=== PATIENT | female | born 1990 | race Caucasian/White ===

== ENCOUNTER → 2018-07-31 | Outpatient (CLI) | payer OTHER | LOC: OD 12:20 | PROVIDERS: ATTEND Obstetrics & Gynecology | DX: O02.0 Blighted ovum and nonhydatidiform mole (principal) | CPT/HCPCS: 36415; 86900; 86901 ==

== ENCOUNTER 2018-09-27 06:58 | Emergency (ER) | payer OTHER ==
[2018-09-27 08:22] LABS: ABSOLUTE LYMPHOCYTES (AUTO) 1.5 10^3/uL (0.5-4.7); ABSOLUTE MONOCYTES (AUTO) 0.5 10^3/uL (0.1-1.4); ABSOLUTE NEUT (AUTO) 5.1 10^3/uL (1.7-8.2); BASOPHILS % (AUTO) 0.2 % (0-2); EOSINOPHILS % (AUTO) 0.4 % (0-6); HEMATOCRIT 37.1 % (36.0-47.0); HEMOGLOBIN 13.4 g/dL (12.0-15.5); LYMPHOCYTES % (AUTO) 20.6 % (13-45); MEAN CORPUSCULAR HEMOGLOBIN 33.9 pg (27.0-33.4); MEAN CORPUSCULAR HGB CONC 36.1 g/dL (32.0-36.0); MEAN CORPUSCULAR VOLUME 94 fl (80-97); MONOCYTES % (AUTO) 7.5 % (3-13); PLATELET COUNT 210 10^3/uL (150-450); RED BLOOD COUNT 3.96 10^6/uL (3.72-5.28); RED CELL DISTRIBUTION WIDTH 13.5 % (11.5-14.0); SEGMENTED NEUTROPHILS % (AUTO) 71.3 % (42-78); TOTAL CELLS COUNTED % (AUTO) 100 %; WHITE BLOOD COUNT 7.2 10^3/uL (4.0-10.5)
[2018-09-27 08:26] LABS: APPEARANCE,URINE CLEAR; BILIRUBIN,URINE NEGATIVE (NEGATIVE); COLOR,URINE YELLOW; GLUCOSE, URINE NEGATIVE (NEGATIVE); KETONES,URINE NEGATIVE (NEGATIVE); LEUKOCYTE ESTERASE,URINE NEGATIVE (NEGATIVE); NITRITE,URINE NEGATIVE (NEGATIVE); PROTEIN,URINE NEGATIVE (NEGATIVE); URINE SPECIFIC GRAVITY 1.021; UROBILINOGEN,URINE NEGATIVE mg/dL (<2.0)
--- NOTE | 2018-09-27 09:45 | RADIOLOGY REPORT (SQ) ---
EXAM DESCRIPTION: U/S OB LIMITED COMPLETED DATE/TIME: 09/27/2018 9:36 am REASON FOR STUDY: vaginal bleeding, pelvic pain COMPARISON: None. TECHNIQUE: Limited transabdominal grayscale ultrasound for evaluation of specific requested obstetri kinjal parameters. LIMITATIONS: None. FINDINGS: CERVICAL LENGTH: 3.9 cm. Closed. TOPHER: Largest pocket 4.8 cm. FHR: 147 beats per minute. PRESENTATION: Transverse. PLACENTA: Fundal. ANATOMY: Not assessed OTHER: No other significant findings. IMPRESSION: LIMITED OBSTETRICAL ULTRASOUND WITH MEASURED PARAMETERS DELINEATED ABOVE. Trimester of : Second trimester - 13 weeks 1 day to 27 weeks 6 days. TECHNICAL DOCUMENTATION: JOB ID: [id number] [employer] All Rights Reserved Reading location - IP/workstation name: [email or web address]
--- NOTE | 2018-09-27 10:17 | ER Document Report ---
ED GI/ - General Chief Complaint: Vaginal Bleeding Stated Complaint: VAGINAL BLEEDING Time Seen by Provider: 09/27/18 07:23 Mode of Arrival: Ambulatory Information source: Patient Notes: Patient presents about 15 weeks complaining of vaginal bleeding and lower pelvic cramping. Patient states that she does have a bicornate uterus. Patient is [facility] and has had previous ultrasounds performed. Patient denies any concerns about any sexually transmitted infection. Patient denies any dysuria symptoms. TRAVEL OUTSIDE OF THE [place] IN LAST 30 DAYS: No - HPI Patient complains to provider of: Pelvic pain, Vaginal bleeding. No: Vaginal discharge Onset: This morning Timing/Duration: Persistent Quality of pain: Cramping Pain Level: 1 Context: Location: Pelvis Vaginal bleeding (Compared to normal period): Spotting Menstrual period history: Associated symptoms: denies: Dysuria, Fever, Nausea, Urinary hesitancy, Urinary frequency, Urinary retention, Urinary urgency, Vomiting Exacerbated by: Denies Relieved by: Denies Similar symptoms previously: No Recently seen / treated by doctor: No - Related Data Allergies/Adverse Reactions: latex Allergy (Verified 09/27/18 07:05) acetaminophen [From Tylenol] Adverse Reaction (Verified 09/27/18 07:50) Past Medical History - General Information source: Patient Last Menstrual Period: 15 weeks - Social History Smoking Status: Never Smoker Frequency of alcohol use: None Drug Abuse: None Lives with: Family Family History: Reviewed & Not Pertinent Patient has suicidal ideation: No Patient has homicidal ideation: No - Past Medical History Cardiac Medical History: Reports: Hx Hypertension Renal/ Medical History: Denies: Hx Peritoneal Dialysis Past Surgical History: Reports: Hx Tonsillectomy, Other - Melanoma removed Review of Systems - Review of Systems Constitutional: No symptoms reported. denies: Fever EENT: No symptoms reported Cardiovascular: No symptoms reported. denies: Chest pain Respiratory: No symptoms reported. denies: Cough, Short of breath Gastrointestinal: Abdominal pain Genitourinary: No symptoms reported. denies: Dysuria, Flank pain, Hematuria Female Genitourinary: , Vaginal bleeding. denies: Vaginal discharge Musculoskeletal: No symptoms reported. denies: Back pain Skin: No symptoms reported Hematologic/Lymphatic: No symptoms reported Neurological/Psychological: No symptoms reported Physical Exam - Vital signs Vitals: Temp Pulse Resp BP Pulse Ox 98.2 F 94 18 123/75 99 09/27/18 07:04 09/27/18 07:04 09/27/18 07:04 09/27/18 07:04 09/27/18 07:04 - General General appearance: Appears well, Alert In distress: None - HEENT Head: Normocephalic, Atraumatic Eyes: Normal Conjunctiva: Normal Nasal: Normal Mouth/Lips: Normal Mucous membranes: Normal Neck: Normal, Supple. No: Lymphadenopathy - Respiratory Respiratory status: No respiratory distress Chest status: Nontender Breath sounds: Normal. No: Rales, Rhonchi, Stridor, Wheezing Chest palpation: Normal - Cardiovascular Rhythm: Regular Heart sounds: S1 appreciated, S2 appreciated Murmur: No - Abdominal Inspection: Normal Distension: No distension Bowel sounds: Normal Tenderness: Tender - Lower pelvic Organomegaly: No organomegaly - Back Back: Normal, Nontender. No: CVA tenderness - Extremities General upper extremity: Normal inspection, Normal ROM General lower extremity: Normal inspection, Normal ROM - Neurological Neuro grossly intact: Yes Cognition: Normal [place] Coma Scale Eye Opening: Spontaneous Luisa Coma Scale Verbal: Oriented Luisa Coma Scale Motor: Obeys Commands Luisa Coma Scale Total: 15 - Psychological Associated symptoms: Normal affect, Normal mood - Skin Skin Temperature: Warm Skin Moisture: Dry Skin Color: Normal Course - Re-evaluation Re-evalutation: 09/27/18 10:14 Offered patient pelvic examination, patient deferred. Offered catheterized urine specimen, patient declines. Patient denies any concerns about sexually transmitted infection as she is closely followed by her [facility] provider. Patient concerned about because of vaginal bleeding. Did speak with radiologist who reviewed down and did not see any explanation for her vaginal bleeding. Radiologist states that there is no abruption and no subchorionic bleed noted. Consulted with Dr. Higgins regarding patient presentation, no additional testing recommended. Advises pelvic rest and follow-up with [facility]. 09/27/18 10:16 - Vital Signs Vital signs: Temp Pulse Resp BP Pulse Ox 97.8 F 78 16 121/76 99 09/27/18 10:29 09/27/18 10:29 09/27/18 10:29 09/27/18 10:29 09/27/18 07:04 - Laboratory Result Diagrams: 09/27/18 08:09 Laboratory results interpreted by me: 09/27/18 09/27/18 09/27/18 08:09 08:09 08:09 MCH 33.9 H MCHC 36.1 H Beta HCG, Quant 94092.00 H Urine Blood MODERATE H 09/27/18 18:25 Labs- Entire Visit 09/27/18 09/27/18 09/27/18 08:09 08:09 08:09 WBC 7.2 RBC 3.96 Hgb 13.4 Hct 37.1 MCV 94 MCH 33.9 H MCHC 36.1 H RDW 13.5 Plt Count 210 Seg Neutrophils % 71.3 Lymphocytes % 20.6 Monocytes % 7.5 Eosinophils % 0.4 Basophils % 0.2 Absolute Neutrophils 5.1 Absolute Lymphocytes 1.5 Absolute Monocytes 0.5 Absolute Eosinophils 0.0 Absolute Basophils 0.0 Beta HCG, Quant Total Beta HCG Urine Color YELLOW Urine Appearance CLEAR Urine pH 6.0 Ur Specific [place] 1.021 Urine Protein NEGATIVE Urine Glucose (UA) NEGATIVE Urine Ketones NEGATIVE Urine Blood MODERATE H Urine Nitrite NEGATIVE Urine Bilirubin NEGATIVE Urine Urobilinogen NEGATIVE Ur Leukocyte Esterase NEGATIVE Urine WBC (Auto) 0 Urine RBC (Auto) 0 U Hyaline Cast (Auto) 1 Squamous Epi Cells Auto 1 Urine Mucus (Auto) MOD Urine Ascorbic Acid NEGATIVE Blood Type A POSITIVE Rhogam Indicated RHOGAM NOT INDICATED 09/27/18 08:09 WBC RBC Hgb Hct MCV MCH MCHC RDW Plt Count Seg Neutrophils % Lymphocytes % Monocytes % Eosinophils % Basophils % Absolute Neutrophils Absolute Lymphocytes Absolute Monocytes Absolute Eosinophils Absolute Basophils Beta HCG, Quant 23842.00 H Total Beta HCG POSITIVE Urine Color Urine Appearance Urine pH Ur Specific [place] Urine Protein Urine Glucose (UA) Urine Ketones Urine Blood Urine Nitrite Urine Bilirubin Urine Urobilinogen Ur Leukocyte Esterase Urine WBC (Auto) Urine RBC (Auto) U Hyaline Cast (Auto) Squamous Epi Cells Auto Urine Mucus (Auto) Urine Ascorbic Acid Blood Type Rhogam Indicated - Diagnostic Test Radiology reviewed: Reports reviewed Discharge - Discharge Clinical Impression: Vaginal bleeding affecting early Condition: Stable Disposition: HOME, SELF-CARE Instructions: Bleeding During Early ([facility]) Additional Instructions: Return immediately for any new or worsening symptoms Followup with your primary care provider, call tomorrow to make a followup appointment Urine culture is pending, we will call if you need any different treatment Follow-up with your [facility] provider, call tomorrow for an appointment Forms: Return to Work Referrals: [facility] [Provider Group] - Follow up tomorrow
[2018-09-27 10:30] VITALS: BP 121/76
== END 2018-09-27 10:29 | disposition home or self-care (01) ==
LOC: ER 06:58
DX: O20.9 Hemorrhage in early pregnancy, unspecified (principal); Z3A.15 15 weeks gestation of pregnancy; Z91.040 Latex allergy status
CPT/HCPCS: 36415; 76815; 81001; 84702; 85025; 86900; 86901; 87086; 99284

== ENCOUNTER 2019-03-10 10:24 | Outpatient (CLI) | payer OTHER ==
--- NOTE | 2019-03-10 11:13 | Non Stress Test Report ---
Non Stress Test Datetime Report Generated by CPN: 03/10/2019 11:13 DEMOGRAPHIC Test Number: 1 EGA NST: 38.1 INDICATION Indication for Study: Ordered by Provider MONITORING Monitor Explained: Monitor Explained; Test Explained; Patient Verbalized Understanding Time on Monitor: 03/10/2019 10:39 Time off Monitor: 03/10/2019 11:03 NST Duration: 24 NST INTERVENTIONS NST Interventions: None Physician Notified NST: Dr. Haile BABY A: [id number] BABY A Movement : Present Contraction Frequency : none FHR Baseline : 130 Accelerations : 15X15 Decelerations : None Variability : Moderate 6-25bpm NST Review: Meets Criteria for Reactive NST NST Review and Verified By : Payam Chaves RN NSDavid Results: Reactive NST REPORT Report Trigger: Send Report
== END 2019-03-10 11:07 | disposition home or self-care (01) ==
LOC: LC 10:24
PROVIDERS: ATTEND Obstetrics & Gynecology
PROC: 4A1HXCZ Monitoring of Products of Conception, Cardiac Rate, External Approach (ICD-10-PCS; principal; 2019-03-10)
DX: Z34.93 Encounter for supervision of normal pregnancy, unspecified, third trimester (principal)
CPT/HCPCS: 59025

== ENCOUNTER 2019-03-11 13:40 | Outpatient (CLI) | payer OTHER ==
[2019-03-11 14:54] LABS: APPEARANCE,URINE CLEAR; BILIRUBIN,URINE NEGATIVE (NEGATIVE); COLOR,URINE STRAW; GLUCOSE, URINE 50 mg/dL (NEGATIVE); KETONES,URINE NEGATIVE (NEGATIVE); LEUKOCYTE ESTERASE,URINE NEGATIVE (NEGATIVE); NITRITE,URINE NEGATIVE (NEGATIVE); PROTEIN,URINE NEGATIVE (NEGATIVE); URINE SPECIFIC GRAVITY 1.004; UROBILINOGEN,URINE NEGATIVE mg/dL (<2.0)
[2019-03-11 15:11] LABS: URINE AMPHETAMINES SCREEN NEGATIVE; URINE BARBITURATES SCREEN NEGATIVE; URINE BENZODIAZEPINES SCREEN NEGATIVE; URINE COCAINE SCREEN NEGATIVE; URINE MARIJUANA (THC) SCREEN NEGATIVE; URINE METHADONE SCREEN NEGATIVE; URINE PHENCYCLIDINE SCREEN NEGATIVE
--- NOTE | 2019-03-11 15:26 | Non Stress Test Report ---
Non Stress Test Datetime Report Generated by CPN: 03/11/2019 15:26 DEMOGRAPHIC Test Number: 3 EGA NST: 38.2 INDICATION Indication for Study: Decreased Movement; Ordered by Provider VITAL SIGNS Temperature - NST: 98.1 MONITORING Monitor Explained: Monitor Explained; Test Explained; Patient Verbalized Understanding Time on Monitor: 03/11/2019 14:40 Time off Monitor: 03/11/2019 15:07 NST Duration: 27 NST INTERVENTIONS NST Interventions: PO Hydration Physician Notified NST: p Noe CNM BABY A: [id number] BABY A Movement : Present Contraction Frequency : occasional FHR Baseline : 125 Accelerations : 15X15 Decelerations : None Variability : Moderate 6-25bpm NST Review: Meets Criteria for Reactive NST NST Review and Verified By : EMEKA Shi NST Results: Reactive NST REPORT Report Trigger: Send Report
== END 2019-03-11 15:52 | disposition home or self-care (01) ==
LOC: LC 13:40
PROVIDERS: ATTEND Obstetrics & Gynecology
PROC: 4A1HXCZ Monitoring of Products of Conception, Cardiac Rate, External Approach (ICD-10-PCS; principal; 2019-03-11)
DX: O36.8130 Decreased fetal movements, third trimester, not applicable or unspecified (principal); O47.1 False labor at or after 37 completed weeks of gestation; Z3A.38 38 weeks gestation of pregnancy
CPT/HCPCS: 80307; 81005; 84112

== ENCOUNTER 2019-03-17 18:59 | Inpatient (IN) | payer OTHER ==
[2019-03-17] MEDS ORDERED: PENICILLIN G-K 5 MILLION UNIT VIAL ONE (20:00)
[2019-03-17] MEDS ORDERED: PENICILLIN G POTASSIUM 5,000,000 UNIT in DEXTROSE 5%-WATER 100 ML IV ONE (20:05)
[2019-03-17] MEDS ORDERED: RINGERS SOLUTION,LACTATED 1,000 ML IV PRN (20:05)
[2019-03-17] MEDS ORDERED: OXYTOCIN/NORMAL SALINE 20 UNIT/1,000 ML RTUINJ ONE (20:06)
[2019-03-17] MEDS ORDERED: LIDOCAINE 1% INJ-PF (10 MG/ML) 30 ML SDV ONE (20:06)
[2019-03-17] MEDS ORDERED: MISOPROSTOL 0.2 MG TABLET ONE (20:06)
--- NOTE | 2019-03-17 20:55 | Admission Physical ---
Datetime Report Generated by CPN: 03/17/2019 20:55 CURRENT ADMISSION Chief Complaint: Uterine Contractions; Suspected Ruptured Membranes Indication for Induction: Not Applicable Admit Impression : Term, Intrauterine ; No Active Labor; Ruptured Membranes Admit Plan: Admit to Unit; Initiate Labor Protocol ALLERGIES Medication Allergies: acetaminophen (09/27/2018); latex (09/27/2018) Latex: Latex Allergies OBSTETRICAL HISTORY EDC: 03/23/2019 00:00 : 2 (Annotations: Data stored by [facility] on behalf of user) Para: 0 Gestational Diabetes: No Rh Sensitization: No Incompetent Cervix: No ESTRELLITA: No Infertility: No ART Treatment: No Uterine Anomaly: Yes IUGR: No Hx Previous C/S: No Macrosomia: Yes Hx Loss/Stillborn: No PIH: No Hx : No Placenta Previa/Abruption: No Depression/PP Depression: No PTL/PROM: No Post Hemorrhage: No SEE RECORDS Alcohol: No Marijuana : No Cocaine: No Other Illicit Drugs: No Cigarettes: Never Smoker. 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, tosillectomy septoplast INFECTIOUS HISTORY Gonorrhea: No Genital Herpes: No Chlamydia: No Tuberculosis: Yes Syphilis: No Hepatitis: No HIV/AIDS Exposure: No Rash or Viral Illness: No HPV: No Infectious History Comments: 2000 PHYSICAL EXAM General: Normal HEENT: Normal Neurologic: Normal Thyroid: Normal Heart: Normal Lungs: Normal Breast: Normal Back: Normal Abdomen: Normal Genitourinary Exam: Normal Extremities: Normal DTRs: Normal Pelvic Type: Adequate Vital Signs: Reviewed; Within Normal Limits VAGINAL EXAM Dilatation: 4 Effacement: 90 Station: -1 Contraction Comments: q 2 MEMBRANES Pooling: Positive Membranes: Ruptured Amniotic Fluid Color: Clear FETUS A EGA: 39.1 Monitoring: External US FHR- Baseline: 110s Variability: Moderate 6-25bpm Accelerations: 15X15 Decelerations: None FHR Category: Category I Admit Comment: Rupture of membranes at 1820--clear fluid. Amna regularly--bicornuate uterus. GBS Positive. PLANS FOR LABOR AND DELIVERY Labor and Delivery: None Pain Management: Epidural Feeding Preference: Breast Circumcision: No INFORMED CONSENT Signature: with User ID: [email or web address]
[2019-03-17] MEDS ORDERED: FENTANYL/BUPIVACAINE/NS/PF 0 MCG/0 ML RTUINJ EPI ONE (21:04)
[2019-03-17] MEDS ORDERED: BUPIVACAINE HCL 0.25 % INJ/PF (2.5 MG/1 ML) 30 ML VIAL ONE (21:04)
[2019-03-17] MEDS ORDERED: EPHEDRINE SULFATE INJ 50 MG/1 ML AMPULE ONE (21:04)
[2019-03-17 21:13] LABS: ABSOLUTE LYMPHOCYTES (AUTO) 1.8 10^3/uL (0.5-4.7); ABSOLUTE NEUT (AUTO) 12.5 10^3/uL (1.7-8.2); BASOPHILS % (AUTO) 0.1 % (0-2); EOSINOPHILS % (AUTO) 0.2 % (0-6); HEMATOCRIT 39.7 % (36.0-47.0); HEMOGLOBIN 13.8 g/dL (12.0-15.5); LYMPHOCYTES % (AUTO) 11.9 % (13-45); MEAN CORPUSCULAR HGB CONC 34.9 g/dL (32.0-36.0); MEAN CORPUSCULAR VOLUME 95 fl (80-97); MONOCYTES % (AUTO) 6.3 % (3-13); PLATELET COUNT 183 10^3/uL (150-450); RED BLOOD COUNT 4.19 10^6/uL (3.72-5.28); RED CELL DISTRIBUTION WIDTH 13.4 % (11.5-14.0); SEGMENTED NEUTROPHILS % (AUTO) 81.5 % (42-78); TOTAL CELLS COUNTED % (AUTO) 100 %; WHITE BLOOD COUNT 15.3 10^3/uL (4.0-10.5)
[2019-03-17 22:03] LABS: APPEARANCE,URINE CLEAR; BILIRUBIN,URINE NEGATIVE (NEGATIVE); COLOR,URINE YELLOW; GLUCOSE, URINE NEGATIVE (NEGATIVE); KETONES,URINE TRACE mg/dL (NEGATIVE); LEUKOCYTE ESTERASE,URINE NEGATIVE (NEGATIVE); NITRITE,URINE NEGATIVE (NEGATIVE); PROTEIN,URINE NEGATIVE (NEGATIVE); URINE SPECIFIC GRAVITY 1.006; UROBILINOGEN,URINE NEGATIVE mg/dL (<2.0)
[2019-03-17 22:25] LABS: URINE AMPHETAMINES SCREEN NEGATIVE; URINE BARBITURATES SCREEN NEGATIVE; URINE BENZODIAZEPINES SCREEN NEGATIVE; URINE COCAINE SCREEN NEGATIVE; URINE MARIJUANA (THC) SCREEN NEGATIVE; URINE METHADONE SCREEN NEGATIVE; URINE PHENCYCLIDINE SCREEN NEGATIVE
[2019-03-17] MEDS ORDERED: ZOLPIDEM TARTRATE 5 MG TABLET PO PRN (23:05)
[2019-03-17] MEDS ORDERED: DIBUCAINE 1% OINTMENT 56 GM TP PRN (23:05)
[2019-03-17] MEDS ORDERED: ACETAMINOPHEN WITH CODEINE #3 TABLET PO PRN ×2 (23:05)
[2019-03-17] MEDS ORDERED: OXYTOCIN/NORMAL SALINE 20 UNIT/1,000 ML RTUINJ IV PRN (23:05)
[2019-03-17] MEDS ORDERED: HYDROCODONE/ACETAMINOPHEN 5-325 MG TABLET PO PRN (23:05)
[2019-03-17] MEDS ORDERED: DIPH/PERTUSS(ACELL)/TETANUS VAC/PF 0.5 ML SYR (>=10YO) IM PRN (23:05)
[2019-03-17] MEDS ORDERED: IBUPROFEN 800 MG TABLET ONE (23:23)
[2019-03-18] MEDS: PENICILLIN G POTASSIUM 2,500,000 UNIT in DEXTROSE 5%-WATER 50 ML IV SCH ×2 (00:50→06:10)
[2019-03-18] MEDS: BENZOCAINE/MENTHOL AEROSOL SPRAY 56 ML TOP PRN (01:16)
--- NOTE | 2019-03-18 04:18 | Delivery Summary ---
Del Sum A-C Datetime Report Generated by CPN: 03/18/2019 04:18 DELIVERY PERSONNEL DELIVERY PERSONNEL: [id number] Delivery Doctor:: Nava Araiza MD Labor and Delivery Nurse:: Yuliet Gray RNchronic specialist Nurse:: Erendira Banerjee RN Turntable Engineer/SOCIAL SECURITY ASSESSOR: Gloria Ross, ST MATERNAL INFORMATION Delivery Anesthesia: None Medications After Delivery: Pitocin Bolus-Please Comment; Pitocin Drip 20 Units/1000ml NSS Maternal Complications: Other Complication Details: bicornuate uterus Provider Comments: of a viable male w/ an OA presentation at 2227; APGARS 9, 9; 2nd degree periurethral and vaginal lac LABOR SUMMARY EDC: 03/23/2019 00:00 No. Babies in Womb: 1 Attempted: No Labor Anesthesia: None LABOR INFORMATION Reason for Induction: Not Applicable Onset of Labor: 03/17/2019 18:20 Complete Dilatation: 03/17/2019 21:24 Oxytocin: N/A Group B Beta Strep: positive Antibiotics # of Doses: 1 Antibiotics Time of Last Dose: 2018 Name of Antibiotic Given: PCN Steroids Given: None Reason Steroids Not Administered: Not Applicable MEMBRANES Membranes Rupture Method: Spontaneous Rupture of Membranes: 03/17/2019 18:20 Length of Rupture (hr): 4.12 Amniotic Fluid Color: Clear Amniotic Fluid Amount: Small Amniotic Fluid Odor: Normal STAGES OF LABOR Stage 1 hr: 3 Stage 1 min: 4 Stage 2 hr: 1 Stage 2 min: 3 Stage 3 hr: 0 Stage 3 min: 5 Total Time in Labor hr: 4 Total Time in Labor min: 12 VAGINAL DELIVERY Episiotomy: None Laceration #1: Periurethral Laceration Extension #1: Second Degree Laceration #2: Vaginal Laceration Extension #2: Second Degree Laceration Repair: Yes Laceration Repair Note: Periurethral lac repaired with 4-0 Chromic; vaginal lac repaired with 2-0 Vicryl Sponge Count Correct: Yes Sharps Count Correct: Yes CSECTION DELIVERY Primary Indication: N/A Secondary Indication: N/A CSection Incision: N/A BABY A INFORMATION Infant Delivery Date/Time: 03/17/2019 22:27 Method of Delivery: Vaginal Born in Route : No : N/A Forceps: N/A Vacuum Extraction: N/A Shoulder Dystocia : No PRESENTATION/POSITION BABY A Presentation: Cephalic Cephalic Presentation: Vertex Breech Presentation: N/A PLACENTA INFORMATION BABY A Placenta Delivery Time : 03/17/2019 22:32 Placenta Method of Delivery: Spontaneous Placenta Status: Delivered SCORES BABY A Heart Rate 1 min: >100 bpm Resp Effort 1 min: Good Cry Reflex Irritability 1 min: Cough or Sneeze or Pulls Away Muscle Tone 1 min: Active Motion Color 1 min: Body Highpoint, Extremities Blue Resuscitation Effort 1 min: Tactile Stimulation SCORE 1 MIN: 9 Heart Rate 5 min: >100 bpm Resp Effort 5 min: Good Cry Reflex Irritability 5 min: Cough or Sneeze or Pulls Away Muscle Tone 5 min: Active Motion Color 5 min: Body [place], Extremities Blue Resuscitation Effort 5 min: Tactile Stimulation SCORE 5 MIN: 9 INFORMATION BABY A Gestational Age at Delivery: 39.1 Gestational Status: Full Term- 39- 40.6 Weeks Infant Outcome : Liveborn Infant Condition : Stable Sex: Male IDENTIFICATION BABY A ID Band Number: [id number] Mother's Name Verified: Yes Infant WEIGHT/LENGTH BABY A Birthweight (gm): 2888 Weight (lb): 6 Weight (oz): 6 Length (in): 19.75 Infant Length (cm): 50.17 CORD INFORMATION BABY A No. Cord Vessels: 3 Nuchal Cord : N/A Cord Blood Taken: Yes-For Storage (Mom's Blood type +) Infant Suction: None ASSESSMENT BABY A Complications: None Physical Findings at Delivery: Within Normal Limits Respirations: Appears Normal Skin to Skin: Yes Supervisor Tellers/ALS Called : No Care By: rn danque Transferred To: Remains with Mother BABY B INFORMATION : N/A SIGNATURES Signature: with User ID: [email or web address]
[2019-03-18] MEDS: IBUPROFEN 800 MG TABLET PO SCH ×3 (06:55→21:23)
[2019-03-18] MEDS ORDERED: PENICILLIN G-K 5 MILLION UNIT VIAL IV SCH (07:15)
[2019-03-18 07:34] LABS: HEMATOCRIT 33.2 % (36.0-47.0); HEMOGLOBIN 11.9 g/dL (12.0-15.5); MEAN CORPUSCULAR HEMOGLOBIN 33.9 pg (27.0-33.4); MEAN CORPUSCULAR HGB CONC 35.9 g/dL (32.0-36.0); MEAN CORPUSCULAR VOLUME 94 fl (80-97); PLATELET COUNT 153 10^3/uL (150-450); RED BLOOD COUNT 3.53 10^6/uL (3.72-5.28); RED CELL DISTRIBUTION WIDTH 13.8 % (11.5-14.0)
[2019-03-18] MEDS: PRENATAL VITAMIN W DHA CAPSULE PO SCH (09:28)
[2019-03-18] MEDS: FERROUS SULFATE 325 MG TABLET PO SCH ×2 (09:28→18:18)
[2019-03-18] MEDS: SENNOSIDES/DOCUSATE 8.6-50 MG 1 EACH TABLET PO SCH (09:28)
[2019-03-18] MEDS: DOCUSATE SODIUM 100 MG CAPSULE PO SCH ×2 (09:28→18:18)
--- NOTE | 2019-03-18 10:59 | PDOC PROGRESS REPORT ---
Subjective-OB Progress Note for:: 03/18/19 Subjective: Pt doing well, no concerns. She reports light bleeding, reg diet and is voiding well. Physical Exam (OB) Vital Signs: Temp Pulse Resp BP Pulse Ox 98.2 F 70 16 116/75 100 03/18/19 08:08 03/18/19 08:08 03/18/19 08:08 03/18/19 08:08 03/18/19 08:08 Intake & Output 03/17/19 03/18/19 03/19/19 06:59 06:59 06:59 Intake Total 1100 Balance 1100 Weight 229.4 kg - General General Appearance: Appears well - Abdomen Description: Soft Flatus Presence: Present Fundal Height: u/u - u/2 - Extremities Lower extremities: Normal inspection Objective-Diagnostic Laboratory: 03/18/19 07:02 03/17/19 03/17/19 03/17/19 19:08 20:45 20:45 WBC 15.3 H RBC 4.19 Hgb 13.8 Hct 39.7 MCV 95 MCH 33.0 MCHC 34.9 RDW 13.4 Plt Count 183 Seg Neutrophils % 81.5 H Lymphocytes % 11.9 L Monocytes % 6.3 Eosinophils % 0.2 Basophils % 0.1 Absolute Neutrophils 12.5 H Absolute Lymphocytes 1.8 Absolute Monocytes 1.0 Absolute Eosinophils 0.0 Absolute Basophils 0.0 Urine Color YELLOW Urine Appearance CLEAR Urine pH 6.0 Ur Specific [place] 1.006 Urine Protein NEGATIVE Urine Glucose (UA) NEGATIVE Urine Ketones TRACE H Urine Blood LARGE H Urine Nitrite NEGATIVE Ur Leukocyte Esterase NEGATIVE Blood Type A POSITIVE Antibody Screen NEGATIVE 03/18/19 07:02 WBC 14.0 H RBC 3.53 L Hgb 11.9 L Hct 33.2 L MCV 94 MCH 33.9 H MCHC 35.9 RDW 13.8 Plt Count 153 Seg Neutrophils % Lymphocytes % Monocytes % Eosinophils % Basophils % Absolute Neutrophils Absolute Lymphocytes Absolute Monocytes Absolute Eosinophils Absolute Basophils Urine Color Urine Appearance Urine pH Ur Specific [place] Urine Protein Urine Glucose (UA) Urine Ketones Urine Blood Urine Nitrite Ur Leukocyte Esterase Blood Type Antibody Screen Assessment and Plan(PN) - Assessment and Plan (1) Vaginal delivery Is this a current diagnosis for this admission?: Yes - Time Spent with Patient Time with patient: Less than 15 minutes Medications reviewed and adjusted accordingly: Yes - Disposition Anticipated Discharge: Home Within: within 24 hours
[2019-03-19] MEDS: IBUPROFEN 800 MG TABLET PO SCH ×2 (05:53→14:38)
--- NOTE | 2019-03-19 09:56 | PDOC DISCHARGE SUMMARY ---
Final Diagnosis Discharge Date: 03/19/19 - PP Day#2, doing well, breast feeding, no complaints, A+, rubella Immune - Final Diagnosis (1) Normal course Is this a current diagnosis for this admission?: Yes (2) Vaginal delivery Is this a current diagnosis for this admission?: Yes Discharge Data - Discharge Medication Prescriptions: Ibuprofen [Motrin 800 mg Tablet] 800 mg PO Q8 #60 tablet Home Medications: Vits96/Iron Fum/Folic [ Tablet] 1 each PO DAILY 03/18/19 Ibuprofen [Motrin 800 mg Tablet] 800 mg PO Q8 #60 tablet 03/19/19 Reason(s) for Admission: Onset of Labor Procedures: NST, Ultrasound Intrapartum Procedure(s): Spontaneous Vaginal Delivery Complication(s): Laceration-Vaginal Laceration-Degree: 2nd - Diagnosis Test Laboratory: Temp Pulse Resp BP Pulse Ox 97.9 F 80 18 104/64 100 03/18/19 19:11 03/18/19 19:11 03/18/19 19:11 03/18/19 19:11 03/18/19 19:11 03/17/19 03/17/19 03/18/19 19:08 20:45 07:02 RBC 4.19 3.53 L Hgb 13.8 11.9 L Hct 39.7 33.2 L Urine Opiates Screen NEGATIVE - Discharge information/Instructions Discharge Activity: Activity As Tolerated, No Lifting Over 10 Pounds, Pelvic Rest Discharge Diet: As Tolerated, Regular Disposition: HOME, SELF-CARE Follow up with: [facility] in: 4, Weeks
[2019-03-19] MEDS: PRENATAL VITAMIN W DHA CAPSULE PO SCH (10:39)
[2019-03-19] MEDS: FERROUS SULFATE 325 MG TABLET PO SCH ×2 (10:39→17:54)
[2019-03-19] MEDS: SENNOSIDES/DOCUSATE 8.6-50 MG 1 EACH TABLET PO SCH (10:39)
[2019-03-19] MEDS: DOCUSATE SODIUM 100 MG CAPSULE PO SCH ×2 (10:39→17:54)
[2019-03-19] MEDS: BENZOCAINE/MENTHOL AEROSOL SPRAY 56 ML TOP PRN (10:49)
[2019-03-19 10:54] VITALS: BP 109/75
== END 2019-03-19 20:52 | disposition home or self-care (01) | DRG 807 ==
LOC: LC 18:59 → LR 20:05 → 2S 03-18 00:47
PROVIDERS: ADMIT Obstetrics & Gynecology; ATTEND Obstetrics & Gynecology
PROC: 10E0XZZ Delivery of Products of Conception, External Approach (ICD-10-PCS; principal; 2019-03-17)
PROC: 0KQM0ZZ Repair Perineum Muscle, Open Approach (ICD-10-PCS; 2019-03-17)
PROC: 0UQMXZZ Repair Vulva, External Approach (ICD-10-PCS; 2019-03-17)
DX: O99.824 Streptococcus B carrier state complicating childbirth (principal); Z37.0 Single live birth; O70.1 Second degree perineal laceration during delivery; O71.82 Other specified trauma to perineum and vulva; Q51.3 Bicornate uterus; O34.03 Maternal care for unspecified congenital malformation of uterus, third trimester; Z3A.39 39 weeks gestation of pregnancy
CPT/HCPCS: 36415; 80307; 81005; 84112; 85025; 85027; 86592; 86850; 86900; 86901; J2540; J2590; J3010; J3490

== ENCOUNTER 2020-04-24 06:07 | Inpatient (IN) | payer OTHER ==
[2020-04-24] MEDS ORDERED: OXYTOCIN 10 UNIT/ML VIAL ONE (07:05)
[2020-04-24] MEDS ORDERED: OXYTOCIN/0.9 % SODIUM CHLORIDE 30 UNIT/500 ML RTUINJ ONE (07:06)
[2020-04-24] MEDS ORDERED: LIDOCAINE 1% INJ-PF (10 MG/ML) 30 ML SDV ONE (07:06)
[2020-04-24] MEDS ORDERED: MISOPROSTOL 0.2 MG TABLET ONE (07:06)
[2020-04-24 07:14] LABS: APPEARANCE,URINE SLIGHTLY-CLOUDY; BILIRUBIN,URINE NEGATIVE (NEGATIVE); COLOR,URINE YELLOW; GLUCOSE, URINE NEGATIVE (NEGATIVE); KETONES,URINE NEGATIVE (NEGATIVE); LEUKOCYTE ESTERASE,URINE NEGATIVE (NEGATIVE); NITRITE,URINE NEGATIVE (NEGATIVE); PROTEIN,URINE NEGATIVE (NEGATIVE); URINE SPECIFIC GRAVITY 1.017; UROBILINOGEN,URINE NEGATIVE mg/dL (<2.0)
--- NOTE | 2020-04-24 07:38 | Admission Physical ---
Datetime Report Generated by CPN: 04/24/2020 07:37 CURRENT ADMISSION Chief Complaint: Uterine Contractions Chief Complaint Other: Painful regular uterine contractions. No LOF or VB Admit Impression : Term, Intrauterine ; Active Labor Admit Plan: Admit to Unit; Initiate Labor Protocol ALLERGIES Medication Allergies: Yes Medication Allergies: acetaminophen (03/18/2019); latex (03/18/2019) Latex: Latex Allergies Food Allergies: none Environmental Allergies: none OBSTETRICAL HISTORY EDC: 05/03/2020 00:00 : 2 Para: 1 Gestational Diabetes: No Rh Sensitization: No Incompetent Cervix: No ESTRELLITA: No Infertility: No ART Treatment: No Uterine Anomaly: No IUGR: No Hx Previous C/S: No Macrosomia: No Hx Loss/Stillborn: No PIH: No Hx : No Placenta Previa/Abruption: No Depression/PP Depression: No PTL/PROM: No Post Hemorrhage: No Current Procedures: Ultrasound; NST Obstetrical History Comments: 2018 G2- Current SEE RECORDS Alcohol: No Marijuana : No Cocaine: No Other Illicit Drugs: No Cigarettes: Never Smoker. [id number] MEDICAL HISTORY Diabetes: No Blood Transfusion: No Pulmonary Disease (Asthma, TB): No Breast Disease: No Hypertension: Yes Shallot Packer Surgery: No Heart Disease: No Hosp/Surgery: Yes Autoimmune Disorder: No Anesthetic Complications: No Kidney Disease: No Abnormal Pap Smear: No Neuro/Epilepsy: No Psychiatric Disorders: No Other Medical Diseases: No Hepatitis/Liver Disease: No Significant Family History: No Varicosities/Phlebitis: No Trauma/Violence : No Thyroid Dysfunction: No Medical History Comments: tonsillectomy INFECTIOUS HISTORY Gonorrhea: No Genital Herpes: No Chlamydia: No Tuberculosis: No Syphilis: No Hepatitis: No HIV/AIDS Exposure: No Rash or Viral Illness: No HPV: No PHYSICAL EXAM General: Normal HEENT: Normal Neurologic: Normal Thyroid: Normal Heart: Normal Lungs: Normal Breast: Normal Back: Normal Abdomen: Normal Genitourinary Exam: Normal Extremities: Normal DTRs: Normal Pelvic Type: Adequate Vital Signs: Reviewed VAGINAL EXAM Dilatation: 4 Effacement: 80 Station: -2 Contraction Comments: Regular Q 2-3 minutes MEMBRANES Membranes: Intact FETUS A EGA: 38.5 Monitoring: External US FHR- Baseline: 140 Variability: Moderate 6-25bpm Accelerations: 15X15 Decelerations: None FHR Category: Category I Presentation: Vertex Admit Comment: at approx 38.5 wks EGA in active labor -Admit to LDR -NPO and IVFs: LR at 125 cc /hr after 1 liter bolus -GBS negative, RH positive -Hx one prior , anticipate PLANS FOR LABOR AND DELIVERY Labor and Delivery: None Pain Management: Epidural Feeding Preference: Breast Benefit of Breast Feed Discussed: Yes Circumcision: Yes INFORMED CONSENT Informed Consent Obtained: Vaginal Delivery; Risks, Benefits and Alternatives Discussed Signature: with User ID: [email or web address] : with User ID: [email or web address]
[2020-04-24] MEDS ORDERED: DIPH/PERTUSS(ACELL)/TETANUS VAC/PF 0.5 ML SYR (>=10YO) IM PRN (07:39)
[2020-04-24] MEDS ORDERED: GLYCERIN/WITCH HAZEL LEAF 1 EACH MED..WIPE TP PRN (07:39)
[2020-04-24] MEDS ORDERED: PSEUDOEPHEDRINE HCL 30 MG TABLET PO PRN (07:39)
[2020-04-24] MEDS ORDERED: MEASLES,MUMPS&RUBELLA VACC/PF 0.5 ML VIAL SUBCUT PRN (07:39)
[2020-04-24] MEDS ORDERED: NA PHOS,M-B/NA PHOS,DI-BA (ADULT) 133 ML ENEMA PR PRN (07:39)
[2020-04-24] MEDS ORDERED: ZOLPIDEM TARTRATE 5 MG TABLET PO PRN (07:39)
[2020-04-24] MEDS ORDERED: ACETAMINOPHEN 650 MG SUPP.RECT PR PRN (07:39)
[2020-04-24] MEDS ORDERED: PROMETHAZINE HCL INJ 25 MG/1 ML VIAL IV PRN (07:39)
[2020-04-24] MEDS ORDERED: MAGNESIUM HYDROXIDE SUSP 30 ML UDCUP PO PRN (07:39)
[2020-04-24] MEDS ORDERED: DIBUCAINE 1% OINTMENT 28 GM TP PRN (07:39)
[2020-04-24] MEDS ORDERED: ACETAMINOPHEN WITH CODEINE #3 TABLET PO PRN ×2 (07:39)
[2020-04-24] MEDS ORDERED: DIPHENHYDRAMINE HCL 25 MG CAPSULE PO PRN (07:39)
[2020-04-24] MEDS ORDERED: PROMETHAZINE HCL 25 MG TABLET PO PRN (07:39)
[2020-04-24] MEDS ORDERED: BENZOCAINE/MENTHOL AEROSOL SPRAY 56 ML TOP PRN (07:39)
[2020-04-24] MEDS ORDERED: PROMETHAZINE HCL 25 MG SUPP.RECT PR PRN (07:39)
[2020-04-24] MEDS ORDERED: OXYTOCIN/0.9 % SODIUM CHLORIDE 30 UNIT/500 ML RTUINJ IV PRN (07:39)
[2020-04-24 07:43] LABS: URINE AMPHETAMINES SCREEN NEGATIVE; URINE BARBITURATES SCREEN NEGATIVE; URINE BENZODIAZEPINES SCREEN NEGATIVE; URINE COCAINE SCREEN NEGATIVE; URINE MARIJUANA (THC) SCREEN NEGATIVE; URINE METHADONE SCREEN NEGATIVE; URINE PHENCYCLIDINE SCREEN NEGATIVE
[2020-04-24] MEDS ORDERED: BENZOCAINE/MENTHOL AEROSOL SPRAY 56 ML ONE (07:58)
[2020-04-24] MEDS ORDERED: IBUPROFEN 800 MG TABLET ONE (07:58)
[2020-04-24] MEDS ORDERED: IBUPROFEN 800 MG TABLET PO SCH (09:00)
--- NOTE | 2020-04-24 09:06 | Delivery Summary ---
Del Sum A-C Datetime Report Generated by CPN: 04/24/2020 09:05 DELIVERY PERSONNEL DELIVERY PERSONNEL: [id number] Delivery Doctor:: Lakisha Ospina MD Labor and Delivery Nurse:: Tommy Aguayo RNcontainer washer machine Nurse:: Sulma Crawford RN Shotgun Shell Reprinting Unit Operator:: MEGA Gallego Nursery Nurse:: Felisa Marcano RN Horse Breaker/DISCHARGE COORDINATOR: Gabby Umberto, FOREIGN SERVICE TEACHER MATERNAL INFORMATION Delivery Anesthesia: Local Medications After Delivery: Pitocin 30 Units in 500ml NS/D5W Delivery QBL: 250 Maternal Complications: Precipitous Labor (<3hrs) LABOR SUMMARY EDC: 05/03/2020 00:00 No. Babies in Womb: 1 Attempted: No Labor Anesthesia: None LABOR INFORMATION Reason for Induction: Not Applicable Onset of Labor: 04/24/2020 04:15 Complete Dilatation: 04/24/2020 07:10 Oxytocin: N/A Group B Beta Strep: Negative Antibiotics # of Doses: 0 Antibiotics Time of Last Dose: n/a Name of Antibiotic Given: n Steroids Given: None Reason Steroids Not Administered: Not Applicable MEMBRANES Membranes Rupture Method: Spontaneous Rupture of Membranes: 04/24/2020 07:09 Length of Rupture (hr): 0.12 Amniotic Fluid Color: Light Meconium Amniotic Fluid Amount: Moderate Amniotic Fluid Odor: Normal STAGES OF LABOR Stage 1 hr: 2 Stage 1 min: 55 Stage 2 hr: 0 Stage 2 min: 6 Stage 3 hr: 0 Stage 3 min: 4 Total Time in Labor hr: 3 Total Time in Labor min: 5 VAGINAL DELIVERY Episiotomy: None Laceration #1: Perineal Laceration Extension #1: Second Degree Other Laceration: 2.0 Chromic Laceration Repair: Yes Sponge Count Correct: N/A Sharps Count Correct: N/A CSECTION DELIVERY Primary Indication: N/A Secondary Indication: N/A CSection Incidence: N/A Labor: N/A Elective: N/A CSection Incision: N/A BABY A INFORMATION Delivery Date/Time: 04/24/2020 07:16 Method of Delivery: Vaginal Nurse Controlled Delivery: No Born in Route : No : N/A Forceps: N/A Vacuum Extraction: N/A Shoulder Dystocia : No PRESENTATION/POSITION BABY A Presentation: Cephalic Cephalic Presentation: Vertex Vertex Position: Right Occipital Anterior Breech Presentation: N/A PLACENTA INFORMATION BABY A Placenta Delivery Time : 04/24/2020 07:20 Placenta Method of Delivery: Spontaneous Placenta Status: Delivered SCORES BABY A Heart Rate 1 min: >100 bpm Resp Effort 1 min: Good Cry Reflex Irritability 1 min: Cough or Sneeze or Pulls Away Muscle Tone 1 min: Active Motion Color 1 min: Body [place], Extremities Blue Resuscitation Effort 1 min: Tactile Stimulation SCORE 1 MIN: 9 Heart Rate 5 min: >100 bpm Resp Effort 5 min: Good Cry Reflex Irritability 5 min: Cough or Sneeze or Pulls Away Muscle Tone 5 min: Active Motion Color 5 min: Body [place], Extremities Blue Resuscitation Effort 5 min: N/A SCORE 5 MIN: 9 Resuscitation Effort 10 min: N/A INFANT INFORMATION BABY A Gestational Age at Delivery: 38.5 Gestational Status: Early Term- 37- 38.6 Weeks Infant Outcome : Liveborn Infant Condition : Stable Infant Sex: Male IDENTIFICATION BABY A Verification Date/Time: 04/24/2020 07:31 ID Band Number: [id number] Mother's Name Verified: Yes RN Verifying : A [place] RN/D [place] RN WEIGHT/LENGTH BABY A Birthweight (gm): 3170 Infant Weight (lb): 7 Infant Weight (oz): 0 Infant Length (in): 19.75 Length (cm): 50.17 CORD INFORMATION BABY A No. Cord Vessels: 3 Nuchal Cord : N/A Cord Blood Taken: Yes-For Eval (Mom's Blood Type - or O+) Suction: None ASSESSMENT BABY A Infant Complications: None Physical Findings at Delivery: Within Normal Limits Infant Respirations: Appears Normal Skin to Skin: Yes Transferred To: Remains with Mother BABY B INFORMATION : N/A SIGNATURES Signature: with User ID: [email or web address] : with User ID: [email or web address]
[2020-04-24 09:16] LABS: HEMATOCRIT 40.5 % (36.0-47.0); MEAN CORPUSCULAR HEMOGLOBIN 33.1 pg (27.0-33.4); MEAN CORPUSCULAR HGB CONC 34.6 g/dL (32.0-36.0); MEAN CORPUSCULAR VOLUME 96 fl (80-97); PLATELET COUNT 157 10^3/uL (150-450); RED BLOOD COUNT 4.23 10^6/uL (3.72-5.28); RED CELL DISTRIBUTION WIDTH 13.6 % (11.5-14.0); WHITE BLOOD COUNT 17.1 10^3/uL (4.0-10.5)
[2020-04-24 09:54] LABS: ABSOLUTE MONOCYTES # (MANUAL) 0.3 10^3/uL (0.1-1.4); BAND NEUTROPHILS % (MANUAL) 1 % (3-5); BASOPHILS % (MANUAL) 0 % (0-2); EOSINOPHILS % (MANUAL) 0 % (0-6); LYMPHOCYTES % (MANUAL) 6 % (13-45); MONOCYTES % (MANUAL) 2 % (3-13); SEGMENTED NEUTROPHILS % (MAN) 91 % (42-78); TOTAL CELLS COUNTED 100
[2020-04-24 09:57] LABS: PLATELET COMMENT ADEQUATE; RBC MORPHOLOGY COMMENT NORMO-CYTIC/CHROMIC; TOXIC GRANULATION SLIGHT
[2020-04-24] MEDS: SENNOSIDES/DOCUSATE 8.6-50 MG 1 EACH TABLET PO SCH (10:17)
[2020-04-24] MEDS: DOCUSATE SODIUM 100 MG CAPSULE PO SCH ×2 (10:17→17:11)
[2020-04-24] MEDS: PRENATAL VITAMIN W DHA CAPSULE PO SCH (10:17)
[2020-04-24] MEDS: FERROUS SULFATE 325 MG TABLET PO SCH ×2 (10:17→17:11)
[2020-04-24] MEDS: FAMOTIDINE 20 MG TABLET PO SCH ×2 (10:17→22:38)
[2020-04-24] MEDS ORDERED: IBUPROFEN 800 MG TABLET PO PRN (14:37)
[2020-04-24] MEDS ORDERED: IBUPROFEN 800 MG TABLET PO ONE (22:30)
[2020-04-25] MEDS: IBUPROFEN 800 MG TABLET PO SCH ×3 (06:04→22:38)
[2020-04-25 07:01] LABS: HEMATOCRIT 35.3 % (36.0-47.0); HEMOGLOBIN 12.5 g/dL (12.0-15.5); MEAN CORPUSCULAR HEMOGLOBIN 33.7 pg (27.0-33.4); MEAN CORPUSCULAR HGB CONC 35.4 g/dL (32.0-36.0); MEAN CORPUSCULAR VOLUME 95 fl (80-97); PLATELET COUNT 147 10^3/uL (150-450); RED BLOOD COUNT 3.71 10^6/uL (3.72-5.28); RED CELL DISTRIBUTION WIDTH 13.7 % (11.5-14.0); WHITE BLOOD COUNT 8.5 10^3/uL (4.0-10.5)
--- NOTE | 2020-04-25 09:29 | PDOC PROGRESS REPORT ---
Subjective-OB Progress Note for:: 04/25/20 Subjective: Doing well, no c/o, holding baby, hsb in room, would like to go home today if baby can go, Physical Exam (OB) Vital Signs: Temp Pulse Resp BP Pulse Ox 97.8 F 87 16 126/81 H 100 04/25/20 08:06 04/25/20 08:06 04/25/20 08:06 04/25/20 08:06 04/25/20 08:06 Intake & Output 04/24/20 04/25/20 04/26/20 06:59 06:59 06:59 Weight 109.4 kg - PIH/Pre-Eclampsia DTR's: 2 + Clonus: Negative Headache: Absent Epigastric Pain: No Visual Changes: No - Lochia Lochia Amount: Scant < 10 ml Lochia Color: Rubra/Red - Abdomen Description: Soft, Round Fundal Description: Firm, Midline Fundal Height: u/u - u/2 Objective-Diagnostic Laboratory: 04/25/20 06:48 04/24/20 04/24/20 04/25/20 08:35 08:35 06:48 WBC 17.1 H 8.5 RBC 4.23 3.71 L Hgb 14.0 12.5 Hct 40.5 35.3 L MCV 96 95 MCH 33.1 33.7 H MCHC 34.6 35.4 RDW 13.6 13.7 Plt Count 157 147 L Seg Neutrophils % Not Reportable Blood Type A POSITIVE Antibody Screen NEGATIVE Assessment and Plan(PN) - Assessment and Plan (2) Normal course Is this a current diagnosis for this admission?: Yes - Time Spent with Patient Time with patient: Less than 15 minutes Medications reviewed and adjusted accordingly: Yes - Disposition Anticipated Discharge: Home Within: within 24 hours
[2020-04-25] MEDS: SENNOSIDES/DOCUSATE 8.6-50 MG 1 EACH TABLET PO SCH (09:33)
[2020-04-25] MEDS: FAMOTIDINE 20 MG TABLET PO SCH ×2 (09:33→22:38)
[2020-04-25] MEDS: DOCUSATE SODIUM 100 MG CAPSULE PO SCH ×2 (09:33→17:32)
[2020-04-25] MEDS: FERROUS SULFATE 325 MG TABLET PO SCH ×2 (09:33→17:32)
[2020-04-25] MEDS: PRENATAL VITAMIN W DHA CAPSULE PO SCH (09:33)
[2020-04-26] MEDS: IBUPROFEN 800 MG TABLET PO SCH (05:18)
[2020-04-26 07:58] VITALS: BP 119/68
[2020-04-26] MEDS: FERROUS SULFATE 325 MG TABLET PO SCH (09:49)
[2020-04-26] MEDS: FAMOTIDINE 20 MG TABLET PO SCH (09:49)
[2020-04-26] MEDS: SENNOSIDES/DOCUSATE 8.6-50 MG 1 EACH TABLET PO SCH (09:49)
[2020-04-26] MEDS: PRENATAL VITAMIN W DHA CAPSULE PO SCH (09:49)
[2020-04-26] MEDS: DOCUSATE SODIUM 100 MG CAPSULE PO SCH (09:49)
--- NOTE | 2020-04-26 13:01 | PDOC DISCHARGE SUMMARY ---
Impression - Admit/DC Date/PCP Admission Date/Primary Care Provider: 04/24/20 07:05 Discharge Date: 04/26/20 - Discharge Diagnosis (1) Normal course Is this a current diagnosis for this admission?: Yes (2) Perineal laceration during delivery, delivered Is this a current diagnosis for this admission?: Yes (3) Thrombocytopenia affecting Is this a current diagnosis for this admission?: Yes (4) Vaginal delivery Is this a current diagnosis for this admission?: Yes - Assessment Summary: 29yo G2 now P2 s/p ppd2, stable and ready for discharge. Understands warning s/s and reasons to rtc/[facility]. Pt verbalized understanding - Additional Information Resuscitation Status: Full Code Discharge Diet: As Tolerated, Regular Discharge Activity: Balance Activity w/Rest, No Lifting Over 10 Pounds, Pelvic Rest, No tub bath, Walk Frequently - will need CBC , reviewed s/s to watch out for with bruising/bleeding Prescriptions: Ibuprofen [Motrin 800 mg Tablet] 800 mg PO Q8HP PRN #20 tablet PRN Reason: Abdominal Cramping Benzocaine/Menthol [Dermoplast Aerosol [place] 56 ml] 1 applic TP PRN PRN #1 can PRN Reason: Home Medications: Vits96/Iron Fum/Folic [ Tablet] 1 each PO DAILY 03/18/19 Benzocaine/Menthol [Dermoplast Aerosol [place] 56 ml] 1 applic TP PRN PRN #1 can 04/26/20 Ibuprofen [Motrin 800 mg Tablet] 800 mg PO Q8HP PRN #20 tablet 04/26/20 Results Laboratory Results: WBC 8.5 10^3/uL (4.0-10.5) 04/25/20 06:48 RBC 3.71 10^6/uL (3.72-5.28) L 04/25/20 06:48 Hgb 12.5 g/dL (12.0-15.5) 04/25/20 06:48 Hct 35.3 % (36.0-47.0) L 04/25/20 06:48 MCV 95 fl (80-97) 04/25/20 06:48 MCH 33.7 pg (27.0-33.4) H 04/25/20 06:48 MCHC 35.4 g/dL (32.0-36.0) 04/25/20 06:48 RDW 13.7 % (11.5-14.0) 04/25/20 06:48 Plt Count 147 10^3/uL (150-450) L 04/25/20 06:48 Lymph % (Auto) Not Reportable 04/24/20 08:35 [place] % (Auto) Not Reportable 04/24/20 08:35 Eos % (Auto) Not Reportable 04/24/20 08:35 Baso % (Auto) Not Reportable 04/24/20 08:35 Absolute Neuts (auto) Not Reportable 04/24/20 08:35 Absolute Lymphs (auto) Not Reportable 04/24/20 08:35 Absolute Monos (auto) Not Reportable 04/24/20 08:35 Absolute Eos (auto) Not Reportable 04/24/20 08:35 Absolute Basos (auto) Not Reportable 04/24/20 08:35 Total Counted 100 04/24/20 08:35 Seg Neutrophils % Not Reportable 04/24/20 08:35 Seg Neuts % (Manual) 91 % (42-78) H 04/24/20 08:35 Band Neutrophils % 1 % (3-5) L 04/24/20 08:35 Lymphocytes % (Manual) 6 % (13-45) L 04/24/20 08:35 Monocytes % (Manual) 2 % (3-13) L 04/24/20 08:35 Eosinophils % (Manual) 0 % (0-6) 04/24/20 08:35 Basophils % (Manual) 0 % (0-2) 04/24/20 08:35 Abs Neuts (Manual) 15.7 10^3/uL (1.7-8.2) H 04/24/20 08:35 Abs Lymphs (Manual) 1.0 10^3/uL (0.5-4.7) 04/24/20 08:35 Abs Monocytes (Manual) 0.3 10^3/uL (0.1-1.4) 04/24/20 08:35 Absolute Eos (Manual) 0.0 10^3/uL (0.0-0.6) 04/24/20 08:35 Abs Basophils (Manual) 0.0 10^3/uL (0.0-0.2) 04/24/20 08:35 Toxic Granulation SLIGHT 04/24/20 08:35 Platelet Comment ADEQUATE 04/24/20 08:35 RBC Morph Comment NORMO-CYTIC/CHROMIC 04/24/20 08:35 Urine Color YELLOW 04/24/20 06:15 Urine Appearance SLIGHTLY-CLOUDY 04/24/20 06:15 Urine pH 5.0 (5.0-9.0) 04/24/20 06:15 Ur Specific [place] 1.017 04/24/20 06:15 Urine Protein NEGATIVE mg/dL (NEGATIVE) 04/24/20 06:15 Urine Glucose (UA) NEGATIVE mg/dL (NEGATIVE) 04/24/20 06:15 Urine Ketones NEGATIVE mg/dL (NEGATIVE) 04/24/20 06:15 Urine Blood NEGATIVE (NEGATIVE) 04/24/20 06:15 Urine Nitrite NEGATIVE (NEGATIVE) 04/24/20 06:15 Urine Bilirubin NEGATIVE (NEGATIVE) 04/24/20 06:15 Urine Urobilinogen NEGATIVE mg/dL (<2.0) 04/24/20 06:15 Ur Leukocyte Esterase NEGATIVE (NEGATIVE) 04/24/20 06:15 Urine Ascorbic Acid NEGATIVE (NEGATIVE) 04/24/20 06:15 Urine Opiates Screen NEGATIVE 04/24/20 06:15 Urine Methadone Screen NEGATIVE 04/24/20 06:15 Ur Barbiturates Screen NEGATIVE 04/24/20 06:15 Ur Phencyclidine Scrn NEGATIVE 04/24/20 06:15 Ur Amphetamines Screen NEGATIVE 04/24/20 06:15 U Benzodiazepines Scrn NEGATIVE 04/24/20 06:15 Urine Cocaine Screen NEGATIVE 04/24/20 06:15 U Marijuana (THC) Screen NEGATIVE 04/24/20 06:15 RPR NONREACTIVE (NONREACTIVE) 04/24/20 08:35 Blood Type A POSITIVE 04/24/20 08:35 Antibody Screen NEGATIVE 04/24/20 08:35
== END 2020-04-26 13:14 | disposition home or self-care (01) | DRG 807 ==
LOC: LC 06:07 → LR 07:05 → 2S 09:45
PROVIDERS: ADMIT Obstetrics & Gynecology; ATTEND Obstetrics & Gynecology
PROC: 10E0XZZ Delivery of Products of Conception, External Approach (ICD-10-PCS; principal; 2020-04-24)
PROC: 0KQM0ZZ Repair Perineum Muscle, Open Approach (ICD-10-PCS; 2020-04-24)
DX: O99.12 Other diseases of the blood and blood-forming organs and certain disorders involving the immune mechanism complicating childbirth (principal); Z37.0 Single live birth; D69.6 Thrombocytopenia, unspecified; O70.1 Second degree perineal laceration during delivery; O62.3 Precipitate labor; Z91.040 Latex allergy status; Z88.6 Allergy status to analgesic agent; Z3A.38 38 weeks gestation of pregnancy
CPT/HCPCS: 36415; 80307; 81005; 85025; 85027; 86592; 86850; 86900; 86901; J2590; J3490